=== PATIENT | male | born 1980 | race Native Hawaiian/Other Pacific Islander ===

== ENCOUNTER 2022-11-03 09:36 | Emergency (ER) | payer OTHER ==
[~2022-11-03] VITALS: Ht 180.3 cm; Wt 118.0 kg
[2022-11-03 09:52] VITALS: BP 192/110
== END 2022-11-03 11:07 | disposition home or self-care (01) ==
LOC: ER 09:37
DX: M25.572 Pain in left ankle and joints of left foot (principal); Z79.899 Other long term (current) drug therapy
CPT/HCPCS: 99282